=== PATIENT | male | born 1935 ===

== ENCOUNTER 2017-01-27 08:36 | Day surgery (SDC) | payer MEDICARE, OTHER ==
[~2017-01-27] VITALS: Ht 182.9 cm; Wt 71.0 kg
[~2017-01-27 08:36] MED LIST: LACTATED RINGERS 1,000 ML IV SCH; LEVOFLOXACIN 500 MG TAB (LEVAQUIN) PO SCH; LIDOCAINE 2% (XYLOCAINE) 10 ML UROJECT MM ONE; SODIUM CHLORIDE FLUSH 3 ML SYR IV PRN
[2017-01-27 08:56] VITALS: BP 146/68
[2017-01-27 09:48] VITALS: BP 147/71
== END 2017-01-27 10:04 | disposition home or self-care (01) ==
LOC: ASC 08:36
PROVIDERS: ATTEND Urology
DX: Z48.3 Aftercare following surgery for neoplasm (principal); N35.9 Urethral stricture, unspecified; E11.9 Type 2 diabetes mellitus without complications; Z85.51 Personal history of malignant neoplasm of bladder; Z79.82 Long term (current) use of aspirin; Z79.02 Long term (current) use of antithrombotics/antiplatelets; Z79.84 Long term (current) use of oral hypoglycemic drugs; Z85.46 Personal history of malignant neoplasm of prostate
CPT/HCPCS: 52000; A9270